=== PATIENT | male | born 1960 | race American Indian/Alaskan Native ===

== ENCOUNTER 2017-09-18 14:31 | Emergency (ER) | payer BC, MEDICARE ==
[2017-09-18] MEDS ORDERED: APRESOLINE IV ONE ×2 (16:46→18:04)
[2017-09-18] MEDS ORDERED: NACL 0.9% 1000 ML 1,000 ML IV ONE (16:47)
[2017-09-18 17:16] LABS: Basophils % (Auto) 0.7 % (0.0-1.8); Eosinophils % (Auto) 0.8 % (0.0-4.3); Hematocrit 44.6 % (35.5-45.6); Mean Corpuscular HGB Conc 34 % (32-34); Mean Corpuscular Hemoglobin 30 pg (28-32); Mean Corpuscular Volume 88 fl (84-94); Platelet Count 202 K/mm3 (140-440); Red Cell Distribution Width 13.8 % (13.2-15.2); White Blood Count 12.7 K/mm3 (4.5-11.0)
[2017-09-18 17:33] LABS: Anion Gap 23 mmol/L; BUN/Creatinine Ratio 11; Blood Urea Nitrogen 10 mg/dL (9-20); Calcium 9.7 mg/dL (8.4-10.2); Carbon Dioxide 23 mmol/L (22-30); Chloride 99.3 mmol/L (98-107); Glucose 98 mg/dL (75-100); Potassium 4.1 mmol/L (3.6-5.0); Sodium 141 mmol/L (137-145)
[2017-09-18 17:36] LABS: Bilirubin,Urine NEG (Negative); Blood,Urine MOD (Negative); Ketones,Urine NEG (Negative); Leukocyte Esterase,Urine NEG (Negative); Mucus,Urine FEW /HPF; Nitrite,Urine NEG (Negative); Protein,Urine <15 mg/dL mg/dL (Negative); Urobilinogen,Urine < 2.0 mg/dL (<2.0)
[2017-09-18] MEDS ORDERED: NORVASC PO ONE (18:09)
--- NOTE | 2017-09-18 18:18 | Emergency Department Report ---
<ROGELIO CHILDERS - Last Filed: 09/18/17 18:40> ED ENT HPI - General Chief complaint: Earache Stated complaint: EAR PAIN AND DRAINAGE Time Seen by Provider: 09/18/17 16:06 Source: patient Mode of arrival: Ambulatory Limitations: No Limitations - History of Present Illness Initial comments: This is a 57-year-old male nontoxic, well nourished in appearance, no acute signs of distress presents to the ED with c/o of right earache x3 days. Patient describes pain as aching with level of 8/10. PAtient denies any mastoid tenderness. PAtient denies any tragus pain, fever, chills, headache, blurry vision, visual changes, nausea, vomiting, headache or stiff neck. Patient denies any chest pain or shortness of breath. Patient denies any discharge from the ear canal. Denies any hearing loss or hearing abnormalities. Patient denies any allergies. Past medical history includes GERD and hypertension. He stated he has not been taking his blood pressure medication for 3-4 years. Patient stated he does follow-up with a primary care doctor list that he has not been taking his blood pressure medication. Patient stated he does not know what the name of medication that he was on 3 years ago for blood pressure. MD complaint: ear pain -: days(s) (3) Location: R ear Severity: mild Severity scale (0 -10): 8 Quality: aching Consistency: constant Improves with: none Worsens with: none Associated Symptoms: denies: fever, cough, gum swelling, toothache, pain with swallowing, sore throat, tinnitus, hearing loss, discharge from ear, rhinorrhea - Related Data Previous Rx's Medication Instructions Recorded Last Taken Type Acetaminophen [Acetaminophen TAB] 500 mg PO Q6HR PRN #30 tablet 09/18/17 Unknown Rx Amoxicillin/K Clav Tab [Augmentin 1 tab PO Q12HR #20 tab 09/18/17 Unknown Rx 875 mg] amLODIPine [Norvasc] 10 mg PO DAILY #30 tab 09/18/17 Unknown Rx Allergies Allergy/AdvReac Type Severity Reaction Status Date / Time No Known Allergies Allergy Verified 09/18/17 21:46 ED Dental HPI - General Chief complaint: Earache Stated complaint: EAR PAIN AND DRAINAGE Time Seen by Provider: 09/18/17 16:06 Source: patient Mode of arrival: Ambulatory Limitations: No Limitations - Related Data Previous Rx's Medication Instructions Recorded Last Taken Type Acetaminophen [Acetaminophen TAB] 500 mg PO Q6HR PRN #30 tablet 09/18/17 Unknown Rx Amoxicillin/K Clav Tab [Augmentin 1 tab PO Q12HR #20 tab 09/18/17 Unknown Rx 875 mg] amLODIPine [Norvasc] 10 mg PO DAILY #30 tab 09/18/17 Unknown Rx Allergies Allergy/AdvReac Type Severity Reaction Status Date / Time No Known Allergies Allergy Verified 09/18/17 21:46 ED Review of Systems ROS: Stated complaint: EAR PAIN AND DRAINAGE Other details as noted in HPI Constitutional: denies: chills, fever Eyes: denies: eye pain, eye discharge, vision change ENT: ear pain. denies: throat pain Respiratory: denies: cough, shortness of breath, wheezing Cardiovascular: denies: chest pain, palpitations Endocrine: no symptoms reported Gastrointestinal: denies: abdominal pain, nausea, diarrhea Genitourinary: denies: urgency, dysuria Musculoskeletal: denies: back pain, joint swelling, arthralgia Skin: denies: rash, lesions Neurological: denies: headache, weakness, paresthesias Psychiatric: denies: anxiety, depression Hematological/Lymphatic: denies: easy bleeding, easy bruising ED Past Medical Hx - Past Medical History Previous Medical History?: No Hx Hypertension: Yes (off meds) Hx GERD: Yes Hx Kidney Stones: Yes Additional medical history: Ear infection and right ear drained - Surgical History Past Surgical History?: Yes Additional Surgical History: Left lung collapsed, Left hip replacement, Left rotator cuff, - Social History Smoking Status: Current Every Day Smoker Substance Use Type: Alcohol, Marijuana - Medications Home Medications: Home Medications Medication Instructions Recorded Confirmed Last Taken Type Acetaminophen [Acetaminophen TAB] 500 mg PO Q6HR PRN #30 tablet 09/18/17 Unknown Rx Amoxicillin/K Clav Tab [Augmentin 1 tab PO Q12HR #20 tab 09/18/17 Unknown Rx 875 mg] amLODIPine [Norvasc] 10 mg PO DAILY #30 tab 09/18/17 Unknown Rx ED Physical Exam - General Limitations: No Limitations General appearance: alert, in no apparent distress - Head Head exam: Present: atraumatic, normocephalic, normal inspection - Eye Eye exam: Present: normal appearance, PERRL, EOMI. Absent: scleral icterus, conjunctival injection, nystagmus, periorbital swelling, periorbital tenderness Pupils: Present: normal accommodation - ENT ENT exam: Present: normal exam, normal orophraynx, mucous membranes moist, normal external ear exam - Expanded ENT Exam Expanded Ear exam: Present: normal external inspection TM/Canal exam: Erythema: Right TM, Bulging: Right TM Mouth exam: Present: normal external inspection, tongue normal. Absent: drooling, trismus, muffled voice, tongue elevation, laceration Teeth exam: Present: normal inspection Throat exam: Positive: normal inspection. Negative: tonsillar erythema, tonsillomegaly, tonsillar exudate, R peritonsillar mass, L peritonsillar mass - Neck Neck exam: Present: normal inspection, full ROM. Absent: tenderness, meningismus, lymphadenopathy, thyromegaly - Respiratory Respiratory exam: Present: normal lung sounds bilaterally. Absent: respiratory distress, wheezes, rales, rhonchi, stridor, chest wall tenderness, accessory muscle use, decreased breath sounds, prolonged expiratory - Cardiovascular Cardiovascular Exam: Present: regular rate, normal rhythm, normal heart sounds. Absent: irregular rhythm, systolic murmur, diastolic murmur, rubs, gallop - GI/Abdominal GI/Abdominal exam: Present: soft, normal bowel sounds. Absent: distended, tenderness, guarding, rebound, rigid, diminished bowel sounds - Rectal Rectal exam: Present: deferred - Extremities Exam Extremities exam: Present: normal inspection, full ROM, normal capillary refill. Absent: tenderness, pedal edema, joint swelling, calf tenderness - Back Exam Back exam: Present: normal inspection, full ROM. Absent: tenderness, CVA tenderness (R), CVA tenderness (L), muscle spasm, paraspinal tenderness, vertebral tenderness, rash noted - Neurological Exam Neurological exam: Present: alert, oriented X3, CN II-XII intact, normal gait, reflexes normal - Psychiatric Psychiatric exam: Present: normal affect, normal mood - Skin Skin exam: Present: warm, dry, intact, normal color. Absent: rash ED Course Vital Signs 09/18/17 09/18/17 09/18/17 14:35 17:22 18:04 Temperature 97.9 F 98.7 F Pulse Rate 54 L 54 L 51 L Respiratory 20 20 Rate Blood Pressure 172/101 172/101 Blood Pressure 174/98 [Right] O2 Sat by Pulse 100 100 Oximetry 09/18/17 09/18/17 09/18/17 18:23 20:33 20:37 Temperature Pulse Rate 51 L 69 Respiratory 18 18 Rate Blood Pressure 174/98 149/77 Blood Pressure 149/77 [Right] O2 Sat by Pulse 99 Oximetry - Reevaluation(s) Reevaluation #1: 09/18/17 18:15 Patient is speaking in full sentences with no signs of distress noted. - Consultations Consultation #1: 09/18/17 18:16 Dr. Scott has been consulted about patient history and physcial exam and blood pressure and agrees to the plan of care in the ED. Consultation #2: 09/18/17 18:45 Patient is signed out to [facility] ED Medical Decision Making - Lab Data Result diagrams: 09/18/17 16:53 09/18/17 16:53 - Medical Decision Making This is a 57-year-old male that presents with hypertension and right otitis media. Patient is stable and was examined by me. CBC, BMP, UA obtained within normal limits. Patient received 1 L of normal saline, 20 mg of hydralazine, and [address] Scott has been consulted and agrees to plan of care to ED and discharged. Patient now stated developed severe headache and stated had bleeding from his ear canal the other day. A CT of head/brain is ordered and pending. PAtient has been signed out to [facility]. At time time of sign out, the patient does not seem toxic or ill in appearance. No acute signs of distress noted. Patient agrees to discharge treatment plan of care in the ED. No further questions noted by the patient. Critical care attestation.: If time is entered above; I have spent that time in minutes in the direct care of this critically ill patient, excluding procedure time. ED Disposition Clinical Impression: Hypertension Qualifiers: Hypertension type: unspecified Qualified Code(s): I10 - Essential (primary) hypertension Otitis media Qualifiers: Otitis media type: unspecified Chronicity: acute Qualified Code(s): H66.90 - Otitis media, unspecified, unspecified ear Mastoiditis Qualifiers: Laterality: right Qualified Code(s): H70.91 - Unspecified mastoiditis, right ear Disposition: - TO HOME OR SELFCARE Condition: Stable Instructions: Hypertension (ED), Otitis Media (ED) Additional Instructions: Patient advised to follow up with ENT and primary care as soon as possible. Prescriptions: Acetaminophen [Acetaminophen TAB] 500 mg PO Q6HR PRN #30 tablet PRN Reason: Pain amLODIPine [Norvasc] 10 mg PO DAILY #30 tab Amoxicillin/K Clav Tab [Augmentin 875 mg] 1 tab PO Q12HR #20 tab Referrals: JANICE YARBROUGH MD [Primary Care Provider] - [facility] - 3-5 Days ENT [facility] [Provider Group] - 3-5 Days Forms: Accompanied Note <KAEL SANTANA - Last Filed: 09/18/17 23:24> ED Medical Decision Making - Lab Data Result diagrams: 09/18/17 16:53 09/18/17 16:53 - Medical Decision Making a/P: HTN, otitis media, possible right mastoiditis 1- Case d/w Dr. Scott ED attending and [facility] ENT cloud consultant Dr. Zhao 2- As per discussion with both physicians will start pt on course of Augmentin and DC with ENT follow up. I explained to pt the need for close f/w with ENT 3- refill on amlodipine. 4- pt lives in [place]. I advised him to f/u with ENT [facility] and his primary care jessica. Pt agreed to do so. This conversation was witnessed by medical educator Carol. pt given scripts for medicine and given 1st dose of ABX viw IV in ED. I gave pt literature to read explaining what mastoiditis is 5- Does NOT meet sepsis criteria [email or web address]. Hearing intact ED Disposition Is pt being admited?: No Does the pt Need Aspirin: No Time of Disposition: 23:22
--- NOTE | 2017-09-18 19:43 | Cat Scan Report ---
FINAL REPORT PROCEDURE: CT HEAD/BRAIN WO CON TECHNIQUE: Computerized tomography of the head was performed without contrast material. HISTORY: headache COMPARISON: No prior studies are available for comparison. FINDINGS: Skull and scalp: Normal. Paranasal sinuses: Moderate right mastoid fluid consistent with otomastoiditis.. Ventricles and subarachnoid spaces: Normal. Cerebrum: No evidence of hemorrhage, acute infarction or mass . Cerebellum and brainstem: No evidence of hemorrhage, acute infarction or mass. Vasculature: Normal. Comments: None. IMPRESSION: Right otomastoiditis. No other acute intracranial pathology seen.
[2017-09-18 20:36] VITALS: BP 149/77
[2017-09-18] MEDS ORDERED: cefTRIAXone 1 GM in NACL 0.9% 20 ML IV ONE (21:38)
[2017-09-18] MEDS ORDERED: NACL 0.9% 500 ML 500 ML ONE (22:40)
[2017-09-18] MEDS ORDERED: NACL 0.9% 500 ML 500 ML IV ONE (22:44)
== END 2017-09-19 00:34 | disposition home or self-care (01) ==
LOC: ED 14:31
DX: H66.91 Otitis media, unspecified, right ear (principal); H70.91 Unspecified mastoiditis, right ear; I10 Essential (primary) hypertension; K21.9 Gastro-esophageal reflux disease without esophagitis; F17.200 Nicotine dependence, unspecified, uncomplicated; F12.10 Cannabis abuse, uncomplicated
CPT/HCPCS: 36415; 70450; 80048; 81001; 82140; 85025; 87040; 96361; 96365; 96366; 96375; 99284; J0360; J0696; J7030; J7040